=== PATIENT | male | born 1960 | race Two or more races ===

== ENCOUNTER 2024-07-18 10:55 | Day surgery (SDC) | payer MEDICARE, SELFPAY ==
[2024-07-18] VITALS (8 sets, daily range): BP systolic 117–155; BP diastolic 75–92; PULSE 55–70; RESP 14–17; TEMP 36.2–36.8; O2SAT 91–100; BMI 35.5
[2024-07-18] MEDS: DiphenhydrAMINE INJ 50 MG/ML VIAL 25 MG IV (12:44)
[2024-07-18] MEDS: MIDAZOLAM INJ 1 MG/ML VIAL 2 ML (ASD USE ONLY) 2 MG IV (12:45)
[2024-07-18] MEDS: fentaNYL CIT INJ 50 mCg/ML AMP 2ML (ASD USE ONLY) IV (12:47)
--- NOTE | 2024-07-18 14:06 | SUR.PHASEII ---
1301: Pt into recovery room. Report from Yanet OLIVAREZ. Pt groggy. Easily aroused. Resp even, unlabored. VS stable. Denies pain. 1330: Pt more awake, alert. Sitting up tolerating po fluids with no difficulty swallowing and no n/v. 1347: Pt fully awake, oriented x3. Pt assisted to restroom. Ambulation steady. Pt speaks [place] but prefers to read written [place]. Pt and daughter stated understanding of discharge instructions. Pt discharged from [facility] in stable condition.
== END 2024-07-18 13:47 | disposition home or self-care (01) ==
PROVIDERS: PCP Internal Medicine; Referring Provider Specialist; Visit Provider Specialist
PROC: 0DBE8ZX Excision of Large Intestine, Via Natural or Artificial Opening Endoscopic, Diagnostic (ICD-10-PCS; CPT 45380; principal; 2024-07-18 11:45)
DX: Z12.11 Encounter for screening for malignant neoplasm of colon (principal); K64.9 Unspecified hemorrhoids; K57.31 Diverticulosis of large intestine without perforation or abscess with bleeding
CPT/HCPCS: G0121; J1200; J2250; J3010